=== PATIENT | female | born 1960 | race African-American/Black ===

== ENCOUNTER 2016-11-25 15:22 | Emergency (ER) | payer SELFPAY ==
[2016-11-25 15:45] LABS: #Basophils 0.1 thou/uL (0.0-0.2); #Eosinphils 0.2 thou/uL (0.0-0.7); #Lymphocytes 1.4 thou/uL (1.20-3.40); #Monocytes 0.4 thou/uL (0.11-0.59); #Neutrophils 3.7 thou/uL (1.40-6.50); %Basophils 1.6 % (0.0-1.0); %Eosinophils 3.1 % (0.0-10.0); %Monocytes 6.3 % (0.0-10.0); Hematocrit 47.4 % (36.0-47.0); Mean Platelet Volume 8.1 fL (7.4-10.4); Red Blood Cell (RBC) Count 4.99 mill/uL (4.20-5.40); White Blood Cell (WBC) Count 5.7 thou/uL (4.8-10.8)
[2016-11-25 15:54] LABS: Anion Gap 14 mmol/L (10-20); BUN (Urea Nitrogen) 10 mg/dL (9.8-20.1); Calc. Creatinine Clearance 0 mL/min (70-130); Carbon Dioxide 21 mmol/L (22-29); Chloride 109 mmol/L (98-107); Estimated GFR-MDRD 83
--- NOTE | 2016-11-25 16:28 | ERRECORD ---
[facility] EMERGENCY RECORD KNOWN ALLERGIES No Known Allergies (Unconfirmed) No Known Drug Allergies (Unconfirmed) CURRENT MEDICATIONS No recorded medications RADIOLOGYINTERPRETATION (15:57 MBRI) HEAD: Head CT negative, without contrast, no bleed, no mass, no acute changes. NECK: Cervical spine CT negative, no fracture, no subluxation. 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 MEDICATION ADMINISTRATION SUMMARY Drug Name: morphine injection, Dose Ordered: 8 mg, Route: IV Push, Status: Given, Time: 15:54 11/25/2016, Detailed record available in Medication Service section. DOCTOR NOTES TEXT: Pt evaluated at this time and appears stable. No findings on my exam or studies to suggest sig injury or issue requiring hospitalization or intervention/consultation. Plan of care discussed with pt and questions answered. Pt was informed of reasons for follow-up and strict reasons for return and they stated understanding. Pt is stable for d/c home at this time. (15:57 MBRI) Pt re-evaluated at this time and presents no concerning neck pain or tenderness. Pt is able to move neck in nml ROM without concerning findings of pain. Clincally pt is awake and alert and shows nml mentation without suspicion of altering condition or medications adversely effecting responses. No sig distracting injury is present and thus I have been able to clear the cspine clinically. Pt remains stable. (15:59 MBRI) PROBLEM LIST No recorded problems DIAGNOSIS (15:59 MBRI) FINAL: PRIMARY: neck strain, ADDITIONAL: back strain. PRESCRIPTION (15:58 MBRI) traMADol: TABLET : 50 mg : ORAL : Quantity: 1 Unit: tab(s) Route: ORAL Schedule: every 6 hours PRN Dispense: 20 May substitute. Refills: No Refills . NOTES: No refills. DISPOSITION PATIENT: Disposition Type: Discharge, Disposition: *Discharge &a-1R&a+25V*p+0X*b9626R*c202B*c15G*c2P*p-0X&a-25V&a+1R Name: Lianne Baez : 1960 F56 MedRec: [id number] AcctNum: [id number] Prepared: FriNov 25, 2016 16:22 by Interface Page 1 of 2 pMD [facility] EMERGENCY RECORD Home, Condition: Fair. (15:59 MBRI) Patient left the department. (16:19 KMOR) Maher: KMOR=JOSE ALEJANDRO Cohen, Marva MBRI=DO Rivera Matthew &a-1R&a+25V*p+0X*x3727N*c202B*c15G*c2P*p-0X&a-25V&a+1R Name: Lianne Baez : 1960 F56 MedRec: [id number] AcctNum: [id number] Prepared: FriNov 25, 2016 16:22 by Interface Page 2 of 2 pMD MTDD
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
== END 2016-11-25 16:19 | disposition home or self-care (01) ==
LOC: BURERS 15:22
DX: S16.1XXA Strain of muscle, fascia and tendon at neck level, initial encounter (principal); S39.012A Strain of muscle, fascia and tendon of lower back, initial encounter; E03.9 Hypothyroidism, unspecified; I10 Essential (primary) hypertension; V89.2XXA Person injured in unspecified motor-vehicle accident, traffic, initial encounter
CPT/HCPCS: 36415; 70450; 72125; 80048; 85025; 96374; G0390; J2270

== ENCOUNTER 2017-03-01 18:22 | Emergency (ER) | payer OTHER, SELFPAY ==
[2017-03-01] MEDS ORDERED: Clindamycin 150 MG CAP ONE (19:54)
== END 2017-03-01 19:57 | disposition home or self-care (01) ==
LOC: BURERS 18:22
DX: N61.1 Abscess of the breast and nipple (principal); I10 Essential (primary) hypertension; E03.9 Hypothyroidism, unspecified; F17.210 Nicotine dependence, cigarettes, uncomplicated; I25.10 Atherosclerotic heart disease of native coronary artery without angina pectoris; Z95.5 Presence of coronary angioplasty implant and graft
CPT/HCPCS: 87070; 87205; 99283

== ENCOUNTER 2017-12-24 10:58 | Emergency (ER) | payer SELFPAY | END 2017-12-24 11:35 | disposition home or self-care (01) | LOC: BURERS 10:58 | DX: I10 Essential (primary) hypertension (principal); E03.9 Hypothyroidism, unspecified; F17.210 Nicotine dependence, cigarettes, uncomplicated; Z85.3 Personal history of malignant neoplasm of breast | CPT/HCPCS: 99283 ==

== ENCOUNTER 2018-02-07 17:30 | Emergency (ER) | payer OTHER, SELFPAY | END 2018-02-07 17:58 | disposition home or self-care (01) | LOC: BURERS 17:30 | DX: B02.9 Zoster without complications (principal); I25.10 Atherosclerotic heart disease of native coronary artery without angina pectoris; E03.9 Hypothyroidism, unspecified; I10 Essential (primary) hypertension; F17.210 Nicotine dependence, cigarettes, uncomplicated; Z85.3 Personal history of malignant neoplasm of breast | CPT/HCPCS: 99282 ==

== ENCOUNTER 2019-04-15 17:01 | Emergency (ER) | payer OTHER, SELFPAY ==
[2019-04-15 17:47] LABS: ALT (SGPT) 10 U/L (8-55); AST (SGOT) 14 U/L (5-34); Albumin 4.2 g/dL (3.5-5.0); Alkaline Phosphatase 71 U/L (40-150); Anion Gap 13 mmol/L (10-20); BUN (Urea Nitrogen) 9 mg/dL (9.8-20.1); Bilirubin, Total 0.4 mg/dL (0.2-1.2); Calc. Creatinine Clearance 0 mL/min (70-130); Calcium 9.2 mg/dL (7.8-10.44); Carbon Dioxide 27 mmol/L (22-29); Chloride 103 mmol/L (98-107); Estimated GFR-MDRD 70; Globulin 3.6 g/dL (2.4-3.5); Glucose 99 mg/dL (70-105); Lipase 21 U/L (8-78); Potassium 3.8 mmol/L (3.5-5.1); Protein, Total 7.8 g/dL (6.0-8.3); Sodium 139 mmol/L (136-145)
[2019-04-15] MEDS ORDERED: Ketorolac Tromethamine 30 MG/ML VIAL ONE (17:47)
[2019-04-15 17:51] LABS: Hemoglobin 13.7 g/dL (12.0-16.0); Mean Corpuscular HGB CONC 30.9 g/dL (32.0-36.0); Mean Corpuscular Hemoglobin 28.5 pg (27.0-31.0); Mean Corpuscular Volume 92.3 fL (78.0-98.0); Mean Platelet Volume 8.2 fL (7.4-10.4); Platelet Count 234 thou/uL (130-400); RBC Distribution Width 12.8 % (11.5-14.5); Red Blood Cell (RBC) Count 4.82 mill/uL (4.20-5.40); White Blood Cell (WBC) Count 3.4 thou/uL (4.8-10.8)
[2019-04-15 18:05] LABS: Band 4 % (5-11); Eosinophils 8 % (0-10); Lymphocytes 33 % (21-51); MDiff Complete? YES; Monocytes 16 % (0-10); Neutrophil 35 % (42-75); Reactive Lymphocytes 2 % (0-10)
[2019-04-15 18:13] LABS: Thyroid Stimulating Hormone 6.1444 uIU/mL (0.35-4.94)
[2019-04-15 18:21] LABS: Clarity Clear (Clear)
[2019-04-15 18:22] LABS: Bilirubin Negative (Negative); Blood, Urine Trace (Negative); Glucose, Urine (Dipstick) Negative (Negative); Leukocyte Trace (Negative); Nitrite Negative (Negative); Protein, Urine (Dipstick) Trace mg/dL (Neg-Trace); pH, Urine 5.5 (5.0-9.0)
[2019-04-15 18:23] LABS: Bacteria/HPF Rare-Few HPF (None Seen); RBC/HPF 0-3 HPF (0-3); Squamous Epithelial 0-3 HPF (0-3); WBC/HPF 0-3 HPF (0-3)
--- NOTE | 2019-04-15 19:24 | RAD ---
PORTABLE CHEST 04/15/19 An AP portable film at 1737 is compared with a 11/24/18 study. The heart is normal in size for an AP film. There is no vascular congestion or edema. The lungs are c lear. IMPRESSION: No acute finding. POS: HOME
[2019-04-15 21:55] LABS: Free T4 (Free Thyroxine) 0.79 ng/dL (0.70-1.48)
== END 2019-04-15 18:49 | disposition home or self-care (01) ==
LOC: BURERS 17:01
DX: E03.9 Hypothyroidism, unspecified (principal); F17.210 Nicotine dependence, cigarettes, uncomplicated
CPT/HCPCS: 71045; 80053; 81003; 81015; 83690; 84439; 84443; 84484; 85025; 87804; 93005; 96361; 96374; J1885

== ENCOUNTER 2020-01-18 20:55 | Emergency (ER) | payer SELFPAY ==
--- NOTE | 2020-01-18 21:41 | RAD ---
Right great toe 3 views HISTORY: Injury to toe. COMPARISON: None. FINDINGS: There is a dislocation at the metatarsophalangeal joint of the great toe. The proximal phal anx is dorsally displaced. IMPRESSION: Dislocation at metatarsal phalangeal joint.
--- NOTE | 2020-01-18 21:43 | RAD ---
Left little finger 3 views HISTORY: Injury to little finger. COMPARISON: None. FINDINGS: There are arthritic changes. There is slight irregularity to the cortex on the volar side t he base of the middle phalanx. I do not see a definite fracture line. IMPRESSION: Probable old injury of the base of the middle phalanx of little finger. Clinical correlat ion is recommended.
[2020-01-18] MEDS ORDERED: Lidocaine 2% PF 5 ML VIAL ONE (22:10)
--- NOTE | 2020-01-18 22:42 | RAD ---
Right great toe 3 views HISTORY: Postreduction COMPARISON: Film done earlier today. FINDINGS: The dislocation at the metatarsal phalangeal joint has been reduced. IMPRESSION: Reduction of dislocation.
[2020-01-18] MEDS ORDERED: Lisinopril 5 MG TAB PO SCH (22:45)
[2020-01-18] MEDS ORDERED: Metoprolol Tartrate 25 MG TAB PO SCH (22:45)
== END 2020-01-18 22:55 | disposition home or self-care (01) ==
LOC: BURERS 20:55
DX: S62.627A Displaced fracture of middle phalanx of left little finger, initial encounter for closed fracture (principal); S93.121A Dislocation of metatarsophalangeal joint of right great toe, initial encounter; E78.5 Hyperlipidemia, unspecified; I10 Essential (primary) hypertension; I25.10 Atherosclerotic heart disease of native coronary artery without angina pectoris; E03.9 Hypothyroidism, unspecified; F17.220 Nicotine dependence, chewing tobacco, uncomplicated; Z79.82 Long term (current) use of aspirin; Z79.899 Other long term (current) drug therapy; V43.52XA Car driver injured in collision with other type car in traffic accident, initial encounter
CPT/HCPCS: 28630; J2001

== ENCOUNTER 2021-01-26 14:57 | Emergency (ER) | payer MEDICAID, SELFPAY ==
[2021-01-26 15:46] LABS: #Basophils 0.1 thou/uL (0.0-0.2); #Eosinphils 0.1 thou/uL (0.0-0.7); #Lymphocytes 1.3 thou/uL (1.20-3.40); #Monocytes 0.4 thou/uL (0.11-0.59); #Neutrophils 7.5 thou/uL (1.40-6.50); %Basophils 0.7 % (0.0-1.0); %Eosinophils 1.1 % (0.0-10.0); %Lymphocytes 13.9 % (21.0-51.0); %Monocytes 4.2 % (0.0-10.0); %Neutrophils 80.1 % (42.0-75.0); Hemoglobin 11.4 g/dL (12.0-16.0); Mean Corpuscular HGB CONC 32.3 g/dL (32.0-36.0); Mean Corpuscular Hemoglobin 29.4 pg (27.0-31.0); Mean Corpuscular Volume 91.1 fL (78.0-98.0); Mean Platelet Volume 8.4 fL (7.4-10.4); Platelet Count 275 thou/uL (130-400); RBC Distribution Width 13.4 % (11.5-14.5); Red Blood Cell (RBC) Count 3.88 mill/uL (4.20-5.40); White Blood Cell (WBC) Count 9.3 thou/uL (4.8-10.8)
[2021-01-26 15:51] LABS: INR-International Normal Ratio 1.1; Prothrombin Time 14.7 sec (12.0-14.7)
[2021-01-26] MEDS ORDERED: Famotidine In NaCl 20 mg/50 ml Premix Bag ONE (15:59)
[2021-01-26 16:00] LABS: ALT (SGPT) 12 U/L (8-55); AST (SGOT) 14 U/L (5-34); Albumin 3.8 g/dL (3.5-5.0); Alkaline Phosphatase 70 U/L (40-110); Anion Gap 13 mmol/L (10-20); BUN (Urea Nitrogen) 12 mg/dL (9.8-20.1); Bilirubin, Total 0.3 mg/dL (0.2-1.2); Calc. Creatinine Clearance 0 mL/min (70-130); Calcium 8.7 mg/dL (7.8-10.44); Carbon Dioxide 25 mmol/L (22-29); Chloride 108 mmol/L (98-107); Globulin 3.4 g/dL (2.4-3.5); Glucose 118 mg/dL (70-105); Potassium 3.9 mmol/L (3.5-5.1); Protein, Total 7.2 g/dL (6.0-8.3); Sodium 142 mmol/L (136-145)
[2021-01-26 16:10] LABS: PTT 22.4 sec (22.9-36.1)
[2021-01-26] MEDS ORDERED: Iopamidol 300 61% 100 ML VIAL FS ONE (16:18)
[2021-01-26] MEDS ORDERED: Pantoprazole 40 MG VIAL ONE (16:33)
== END 2021-01-26 17:37 | disposition short-term general hospital (02) ==
LOC: BURERS 14:57
DX: K92.2 Gastrointestinal hemorrhage, unspecified (principal); E78.5 Hyperlipidemia, unspecified; I10 Essential (primary) hypertension; I25.10 Atherosclerotic heart disease of native coronary artery without angina pectoris; E03.9 Hypothyroidism, unspecified; F17.210 Nicotine dependence, cigarettes, uncomplicated; Z79.899 Other long term (current) drug therapy
CPT/HCPCS: 74177; 80053; 82274; 85025; 85610; 85730; 94760; 96365; 96375; C9113; Q9967

== ENCOUNTER 2021-03-16 18:57 | Emergency (ER) | payer MEDICAID ==
[~2021-03-16 18:57] MED LIST: Iopamidol 370 76% 100 ML VIAL ONE; Iopamidol 370 76% 50 ML VIAL FS ONE
[2021-03-16] MEDS ORDERED: Morphine 4 MG/ML VIAL ONE ×2 (19:37→23:37)
[2021-03-16] MEDS ORDERED: Ondansetron PF 4 MG/2 ML Vial ONE (19:38)
[2021-03-16 19:49] LABS: Bilirubin Moderate (Negative); Blood, Urine Negative (Negative); Clarity Cloudy (Clear); Glucose, Urine (Dipstick) Negative (Negative); Ketone, Urine Trace mg/dL (Negative); Leukocyte Negative (Negative); Nitrite Negative (Negative); Protein, Urine (Dipstick) 30 mg/dL (Neg-Trace); Specific Gravity, Urine 1.036 (1.002-1.036)
[2021-03-16 19:51] LABS: Bacteria/HPF 2+ HPF (None Seen); Mucous/LPF 4+ LPF (<2+); RBC/HPF 0-3 HPF (0-3)
[2021-03-16 19:58] LABS: #Basophils 0.1 thou/uL (0.0-0.2); #Eosinphils 0.2 thou/uL (0.0-0.7); #Lymphocytes 1.7 thou/uL (1.20-3.40); #Monocytes 0.3 thou/uL (0.11-0.59); #Neutrophils 2.2 thou/uL (1.40-6.50); %Basophils 1.3 % (0.0-1.0); %Eosinophils 4.8 % (0.0-10.0); %Monocytes 6.7 % (0.0-10.0); %Neutrophils 49.1 % (42.0-75.0); ALT (SGPT) 10 U/L (8-55); AST (SGOT) 19 U/L (5-34); Albumin 3.8 g/dL (3.5-5.0); Alkaline Phosphatase 63 U/L (40-110); Anion Gap 13 mmol/L (10-20); BUN (Urea Nitrogen) 10 mg/dL (9.8-20.1); Bilirubin, Total Less than 0.2 mg/dL (0.2-1.2); Calc. Creatinine Clearance 0 mL/min (70-130); Calcium 9.4 mg/dL (7.8-10.44); Carbon Dioxide 25 mmol/L (22-29); Chloride 108 mmol/L (98-107); Globulin 3.8 g/dL (2.4-3.5); Glucose 105 mg/dL (70-105); Hemoglobin 9.7 g/dL (12.0-16.0); Lipase 33 U/L (8-78); Mean Corpuscular HGB CONC 31.6 g/dL (32.0-36.0); Mean Corpuscular Volume 82.3 fL (78.0-98.0); Mean Platelet Volume 7.6 fL (7.4-10.4); Platelet Count 315 thou/uL (130-400); Potassium 4.1 mmol/L (3.5-5.1); Protein, Total 7.6 g/dL (6.0-8.3); Red Blood Cell (RBC) Count 3.73 mill/uL (4.20-5.40); Sodium 142 mmol/L (136-145); White Blood Cell (WBC) Count 4.4 thou/uL (4.8-10.8)
[2021-03-16] MEDS ORDERED: Hydrochlorothiazide 25 MG TAB ONE (21:10)
== END 2021-03-17 00:10 | disposition home or self-care (01) ==
LOC: BURERS 18:57
DX: R10.84 Generalized abdominal pain (principal); I10 Essential (primary) hypertension; C77.2 Secondary and unspecified malignant neoplasm of intra-abdominal lymph nodes; R11.10 Vomiting, unspecified; E78.5 Hyperlipidemia, unspecified; I25.10 Atherosclerotic heart disease of native coronary artery without angina pectoris; I25.2 Old myocardial infarction; E03.9 Hypothyroidism, unspecified; F17.210 Nicotine dependence, cigarettes, uncomplicated; Z85.038 Personal history of other malignant neoplasm of large intestine; Z85.3 Personal history of malignant neoplasm of breast; Z79.899 Other long term (current) drug therapy
CPT/HCPCS: 74177; 80053; 81003; 81015; 83605; 83690; 85025; 96374; 96375; 96376; J2270; J2405; Q9967

== ENCOUNTER 2021-04-15 21:18 | Emergency (ER) | payer MEDICAID, OTHER ==
[2021-04-15] MEDS ORDERED: Ondansetron PF 4 MG/2 ML Vial ONE (21:48)
[2021-04-15 22:01] LABS: ALT (SGPT) 13 U/L (8-55); AST (SGOT) 19 U/L (5-34); Albumin 4.1 g/dL (3.5-5.0); Alkaline Phosphatase 107 U/L (40-110); Anion Gap 20 mmol/L (10-20); BUN (Urea Nitrogen) 12 mg/dL (9.8-20.1); Bilirubin, Total 0.6 mg/dL (0.2-1.2); CK (CPK) 46 U/L (29-168); Calc. Creatinine Clearance 0 mL/min (70-130); Calcium 9.5 mg/dL (7.8-10.44); Carbon Dioxide 22 mmol/L (22-29); Chloride 104 mmol/L (98-107); Globulin 3.8 g/dL (2.4-3.5); Glucose 121 mg/dL (70-105); Lipase 12 U/L (8-78); Potassium 3.6 mmol/L (3.5-5.1); Protein, Total 7.9 g/dL (6.0-8.3); Sodium 142 mmol/L (136-145)
[2021-04-15 22:27] LABS: Hemoglobin 13.7 g/dL (12.0-16.0); Mean Corpuscular HGB CONC 31.3 g/dL (32.0-36.0); Mean Corpuscular Hemoglobin 26.9 pg (27.0-31.0); Mean Corpuscular Volume 85.8 fL (78.0-98.0); Mean Platelet Volume 7.9 fL (7.4-10.4); Platelet Count 219 thou/uL (130-400)
[2021-04-15 22:50] LABS: Band 59 % (5-11); Lymphocytes 3 % (21-51); MDiff Complete? YES; Monocytes 4 % (0-10); Neutrophil 34 % (42-75); Platelet Morphology Comment Appears Adequate; Poikilocytosis SLIGHT = 6-15 cells (100X) (0-5/hpf)
[2021-04-15 22:52] LABS: White Blood Cell (WBC) Count 79.5 thou/uL (4.8-10.8)
[2021-04-15] MEDS ORDERED: Morphine 4 MG/ML VIAL ONE (23:06)
[2021-04-15] MEDS ORDERED: Metoprolol Tartrate 5 MG/5 ML VIAL ONE (23:06)
== END 2021-04-15 23:15 | disposition short-term general hospital (02) ==
LOC: BURERS 21:18
DX: I10 Essential (primary) hypertension (principal); D72.829 Elevated white blood cell count, unspecified; R10.84 Generalized abdominal pain; R11.2 Nausea with vomiting, unspecified; R07.89 Other chest pain; E78.5 Hyperlipidemia, unspecified; E03.9 Hypothyroidism, unspecified; F17.210 Nicotine dependence, cigarettes, uncomplicated; Z79.899 Other long term (current) drug therapy
CPT/HCPCS: 71045; 80053; 82550; 83690; 84484; 85025; 93005; 96374; 96375; J2270; J2405

== ENCOUNTER 2022-10-11 00:39 | Emergency (ER) | payer OTHER ==
[2022-10-11 02:50] LABS: #Basophils 0.2 thou/uL (0.0-0.2); #Eosinphils 1.6 thou/uL (0.0-0.7); #Lymphocytes 2.6 thou/uL (1.20-3.40); #Monocytes 0.3 thou/uL (0.11-0.59); %Basophils 1.9 % (0.0-1.0); %Eosinophils 16.2 % (0.0-10.0); %Lymphocytes 26.9 % (21.0-51.0); %Monocytes 3.4 % (0.0-10.0); %Neutrophils 51.6 % (42.0-75.0); Hemoglobin 11.9 g/dL (12.0-16.0); Mean Corpuscular HGB CONC 32.9 g/dL (32.0-36.0); Mean Corpuscular Hemoglobin 30.9 pg (27.0-31.0); Mean Platelet Volume 7.3 fL (7.4-10.4); Platelet Count 418 10x3/uL (130-400); RBC Distribution Width 15.3 % (11.5-14.5); Red Blood Cell (RBC) Count 3.84 mill/uL (4.20-5.40); White Blood Cell (WBC) Count 9.6 10x3/uL (4.8-10.8)
[2022-10-11] MEDS ORDERED: Morphine 4 MG/ML VIAL ONE ×2 (02:50→02:53)
[2022-10-11] MEDS ORDERED: Morphine 2 MG/ML VIAL ONE ×2 (02:52)
[2022-10-11 03:07] LABS: Anion Gap 15 mmol/L (10-20); BUN (Urea Nitrogen) 12 mg/dL (9.8-20.1); Bilirubin, Total 0.5 mg/dL (0.2-1.2); Calc. Creatinine Clearance 0 mL/min (70-130); Calcium 9.5 mg/dL (7.8-10.44); Carbon Dioxide 26 mmol/L (22-29); Chloride 104 mmol/L (98-107); Estimated GFR 55; Globulin 4.4 g/dL (2.4-3.5); Glucose 113 mg/dL (70-105); Potassium 3.7 mmol/L (3.5-5.1); Protein, Total 8.4 g/dL (6.0-8.3); Sodium 141 mmol/L (136-145)
[2022-10-11 03:08] LABS: ALT (SGPT) 18 U/L (8-55); AST (SGOT) 25 U/L (5-34); Alkaline Phosphatase 135 U/L (40-110); Lipase 36 U/L (8-78)
[2022-10-11 05:10] LABS: SARS-CoV-2 NAA Rapid Test Not Detected (NotDetected)
[2022-10-11 05:35] LABS: Bilirubin Negative (Negative); Blood, Urine Trace (Negative); Clarity Clear (Clear); Glucose, Urine (Dipstick) Negative (Negative); Ketone, Urine Negative (Negative); Leukocyte Small (Negative); Nitrite Negative (Negative); Protein, Urine (Dipstick) Negative (Neg-Trace); RBC/HPF 0-3 HPF (0-3); Specific Gravity, Urine 1.015 (1.005-1.030); Squamous Epithelial None Seen HPF (0-3); Urobilinogen 0.2 mg/dL (Less than 2); WBC/HPF None Seen HPF (0-3)
[2022-10-11 05:36] LABS: Bacteria/HPF Rare-Few HPF (None Seen); Mucous/LPF None Seen LPF (<2+)
[2022-10-11] MEDS ORDERED: HYDROcodone/Acetaminophen 5/325 mg Tablet ONE (09:50)
[2022-10-11] MEDS ORDERED: Iopamidol 370 76% 100 ML VIAL ONE (15:12)
== END 2022-10-11 07:44 | disposition home or self-care (01) ==
LOC: BURERS 00:39
DX: R10.9 Unspecified abdominal pain (principal); R51.9 Headache, unspecified; E78.5 Hyperlipidemia, unspecified; E03.9 Hypothyroidism, unspecified; I10 Essential (primary) hypertension; F17.210 Nicotine dependence, cigarettes, uncomplicated; Z20.822 Contact with and (suspected) exposure to COVID-19; Z85.038 Personal history of other malignant neoplasm of large intestine
CPT/HCPCS: 74177; 80053; 81003; 81015; 83605; 83690; 85025; 96374; J2270; Q9967

== ENCOUNTER 2023-03-07 00:09 | Emergency (ER) | payer OTHER ==
[2023-03-07] MEDS ORDERED: Famotidine/PF 20 mg/2ml Vial ONE (00:59)
[2023-03-07] MEDS ORDERED: Lidocaine Viscous Sol 2% 15 ml UD Cup ONE (00:59)
[2023-03-07] MEDS ORDERED: Mag-Al Plus 1200 MG/1200 MG/120 MG/30 ML UDCUP ONE (00:59)
[2023-03-07 01:43] LABS: Hemoglobin 11.6 g/dL (12.0-16.0); Mean Corpuscular HGB CONC 31.1 g/dL (32.0-36.0); Mean Corpuscular Hemoglobin 27.9 pg (27.0-31.0); Mean Platelet Volume 8.1 fL (7.4-10.4); Platelet Count 255 10x3/uL (130-400); RBC Distribution Width 13.6 % (11.5-14.5); Red Blood Cell (RBC) Count 4.14 mill/uL (4.20-5.40); Reflex for Review?? NO
[2023-03-07 01:47] LABS: ALT (SGPT) 9 U/L (8-55); AST (SGOT) 11 U/L (5-34); Albumin 3.3 g/dL (3.5-5.0); Alkaline Phosphatase 109 U/L (40-110); Anion Gap 20 mmol/L (10-20); BUN (Urea Nitrogen) 6 mg/dL (9.8-20.1); Bilirubin, Total 0.6 mg/dL (0.2-1.2); Calc. Creatinine Clearance 0 mL/min (70-130); Calcium 8.4 mg/dL (7.8-10.44); Carbon Dioxide 31 mmol/L (22-29); Chloride 96 mmol/L (98-107); Estimated GFR 73; Globulin 3.6 g/dL (2.4-3.5); Glucose 105 mg/dL (70-105); Potassium 3.1 mmol/L (3.5-5.1); Protein, Total 6.9 g/dL (6.0-8.3); Sodium 144 mmol/L (136-145)
[2023-03-07 01:50] LABS: Lipase Less than 4 U/L (8-78)
[2023-03-07] MEDS ORDERED: Potassium Chloride 20 MEQ TAB ONE (01:53)
[2023-03-07 05:22] LABS: White Blood Cell (WBC) Count 1.5 10x3/uL (4.8-10.8)
[2023-03-07 05:24] LABS: Giant Platelets SLIGHT; Lymphocytes 90 % (21-51); Monocytes 3 % (0-10)
== END 2023-03-07 02:13 | disposition home or self-care (01) ==
LOC: BURERS 00:09
DX: K21.9 Gastro-esophageal reflux disease without esophagitis (principal); E87.6 Hypokalemia; D64.9 Anemia, unspecified; E87.8 Other disorders of electrolyte and fluid balance, not elsewhere classified; E87.3 Alkalosis; I10 Essential (primary) hypertension; Z79.899 Other long term (current) drug therapy; Z79.82 Long term (current) use of aspirin; F17.210 Nicotine dependence, cigarettes, uncomplicated
CPT/HCPCS: 71045; 80053; 83690; 84484; 85025; 93005; 96374; S0028

== ENCOUNTER 2023-06-11 03:41 | Emergency (ER) | payer OTHER ==
[2023-06-11] MEDS ORDERED: Ondansetron PF 4 MG/2 ML Vial ONE (04:20)
[2023-06-11] MEDS ORDERED: Famotidine/PF 20 mg/2ml Vial ONE (04:20)
[2023-06-11] MEDS ORDERED: Mag-Al Plus 1200 MG/1200 MG/120 MG/30 ML UDCUP ONE (04:21)
[2023-06-11] MEDS ORDERED: Cyclobenzaprine 10 MG TAB ONE (04:21)
[2023-06-11] MEDS ORDERED: Lidocaine Viscous Sol 2% 15 ml UD Cup ONE (04:21)
[2023-06-11 04:24] LABS: #Basophils 0.1 thou/uL (0.0-0.2); #Eosinphils 0.1 thou/uL (0.0-0.7); #Lymphocytes 3.5 thou/uL (1.20-3.40); #Monocytes 0.8 thou/uL (0.11-0.59); #Neutrophils 8.1 thou/uL (1.40-6.50); %Basophils 0.6 % (0.0-1.0); %Eosinophils 0.7 % (0.0-10.0); %Lymphocytes 27.5 % (21.0-51.0); %Monocytes 6.6 % (0.0-10.0); %Neutrophils 64.6 % (42.0-75.0); Mean Corpuscular HGB CONC 33.3 g/dL (32.0-36.0); Mean Corpuscular Hemoglobin 29.2 pg (27.0-31.0); Mean Corpuscular Volume 87.8 fl (78.0-98.0); Platelet Count 350 10x3/uL (130-400); Red Blood Cell (RBC) Count 4.78 mill/uL (4.20-5.40); White Blood Cell (WBC) Count 12.6 10x3/uL (4.8-10.8)
[2023-06-11 04:45] LABS: ALT (SGPT) 17 U/L (8-55); AST (SGOT) 17 U/L (5-34); Albumin 3.8 g/dL (3.4-4.8); Alkaline Phosphatase 138 U/L (40-110); Anion Gap 17 mmol/L (10-20); BUN (Urea Nitrogen) 8 mg/dL (9.8-20.1); Bilirubin, Total 0.3 mg/dL (0.2-1.2); Calc. Creatinine Clearance 0 mL/min (70-130); Calcium 9.3 mg/dL (7.8-10.44); Carbon Dioxide 25 mmol/L (23-31); Chloride 103 mmol/L (98-107); Estimated GFR 71; Glucose 94 mg/dL (80-115); Lipase 9 U/L (8-78); Protein, Total 6.8 g/dL (5.8-8.1); Sodium 142 mmol/L (136-145)
[2023-06-11 04:46] LABS: Potassium 2.6 mmol/L (3.5-5.1)
[2023-06-11] MEDS ORDERED: Potassium Chloride 20 MEQ TAB ONE (05:03)
[2023-06-11] MEDS ORDERED: hydrALAZINE 20 MG/ML VIAL ONE (05:14)
[2023-06-11] MEDS ORDERED: Potassium Chloride 20 MEQ/100 ML PREMIX BAG ONE (05:24)
[2023-06-11] MEDS ORDERED: Potassium Bicarbonate/Cit Ac 20 MEQ TAB PO SCH (05:30)
[2023-06-11] MEDS ORDERED: Sucralfate 1 GM TAB ONE (05:32)
== END 2023-06-11 09:17 | disposition home or self-care (01) ==
LOC: BURERS 03:41
DX: K21.00 Gastro-esophageal reflux disease with esophagitis, without bleeding (principal); I10 Essential (primary) hypertension; E87.6 Hypokalemia; F17.210 Nicotine dependence, cigarettes, uncomplicated; Z85.038 Personal history of other malignant neoplasm of large intestine; Z85.3 Personal history of malignant neoplasm of breast; Z79.899 Other long term (current) drug therapy
CPT/HCPCS: 71045; 80053; 83690; 83880; 84484; 85025; 93005; 94760; 96361; 96374; 96375; J0360; J2405; J3480; S0028

== ENCOUNTER 2024-06-08 00:04 | Emergency (ER) | payer OTHER ==
[2024-06-08] MEDS ORDERED: Ketorolac Tromethamine 30 MG (1 mL) VIAL ONE (00:28)
[2024-06-08 00:56] LABS: #Basophils 0.1 thou/uL (0.0-0.2); #Eosinphils 0.2 thou/uL (0.0-0.7); #Lymphocytes 3.2 thou/uL (1.20-3.40); #Monocytes 1.3 thou/uL (0.11-0.59); #Neutrophils 13.2 thou/uL (1.40-6.50); %Basophils 0.7 % (0.0-1.0); %Neutrophils 73.2 % (42.0-75.0); Hematocrit 39.8 % (36.0-47.0); Mean Corpuscular HGB CONC 32.7 g/dL (32.0-36.0); Mean Corpuscular Hemoglobin 30.9 pg (27.0-31.0); Mean Corpuscular Volume 94.4 fl (78.0-98.0); Mean Platelet Volume 6.2 fL (7.4-10.4); Platelet Count 169 10x3/uL (130-400); RBC Distribution Width 14.2 % (11.5-14.5); Red Blood Cell (RBC) Count 4.22 mill/uL (4.20-5.40)
[2024-06-08 01:17] LABS: ALT (SGPT) 30 U/L (8-55); AST (SGOT) 26 U/L (5-34); Albumin 3.7 g/dL (3.4-4.8); Alkaline Phosphatase 130 U/L (40-110); Anion Gap 17 mmol/L (10-20); BUN (Urea Nitrogen) 8 mg/dL (9.8-20.1); Bilirubin, Total 0.3 mg/dL (0.2-1.2); Calc. Creatinine Clearance 0 mL/min (70-130); Calcium 9.5 mg/dL (7.8-10.44); Carbon Dioxide 24 mmol/L (23-31); Chloride 105 mmol/L (98-107); Estimated GFR 61; Globulin 3.3 g/dL (2.4-3.5); Glucose 115 mg/dL (80-115); Potassium 3.7 mmol/L (3.5-5.1); Sodium 142 mmol/L (136-145)
== END 2024-06-08 01:29 | disposition home or self-care (01) ==
LOC: BURERS 00:04
DX: S39.012A Strain of muscle, fascia and tendon of lower back, initial encounter (principal); R07.89 Other chest pain; I10 Essential (primary) hypertension; I25.2 Old myocardial infarction; F17.210 Nicotine dependence, cigarettes, uncomplicated; X58.XXXA Exposure to other specified factors, initial encounter; Z79.899 Other long term (current) drug therapy
CPT/HCPCS: 80053; 84484; 85025; 93005; 96374; J1885

== ENCOUNTER 2025-03-18 16:25 | Emergency (ER) | payer MEDICAID, OTHER ==
[~2025-03-18 16:25] MED LIST changes: +HYDROcodone/Acetaminophen 5/325 mg Tablet ONE; -Iopamidol 370 76% 100 ML VIAL ONE; -Iopamidol 370 76% 50 ML VIAL FS ONE
== END 2025-03-18 19:20 | disposition home or self-care (01) ==
LOC: BURERS 16:25
DX: S92.902A Unspecified fracture of left foot, initial encounter for closed fracture (principal); X58.XXXA Exposure to other specified factors, initial encounter
CPT/HCPCS: 99283

== ENCOUNTER 2025-09-03 14:11 | Emergency (ER) | payer MEDICAID ==
[2025-09-03] MEDS ORDERED: HYDROcodone/Acetaminophen 5/325 mg Tablet ONE (14:39)
[2025-09-03] MEDS ORDERED: Nitroglycerin 2% Ointment 1 INCH/1 GM Packet ONE (14:39)
[2025-09-03] MEDS ORDERED: hydrALAZINE 20 MG/ML VIAL ONE (15:21)
== END 2025-09-03 15:51 | disposition home or self-care (01) ==
LOC: BURERS 14:11
DX: R10.9 Unspecified abdominal pain (principal); I10 Essential (primary) hypertension; C18.9 Malignant neoplasm of colon, unspecified; C78.7 Secondary malignant neoplasm of liver and intrahepatic bile duct; C25.9 Malignant neoplasm of pancreas, unspecified; F17.210 Nicotine dependence, cigarettes, uncomplicated; F17.290 Nicotine dependence, other tobacco product, uncomplicated
CPT/HCPCS: 96372; 99283; J0360

== ENCOUNTER 2025-09-14 00:57 | Emergency (ER) | payer MEDICAID ==
[2025-09-14] MEDS ORDERED: hydrALAZINE 20 MG/ML VIAL ONE (01:51)
[2025-09-14] MEDS ORDERED: Ondansetron PF 4 MG/2 ML Vial ONE (01:52)
[2025-09-14 02:31] LABS: Anion Gap 16 mmol/L (10-20); BUN (Urea Nitrogen) 8 mg/dL (9.8-20.1); Calc. Creatinine Clearance 0 mL/min (70-130); Calcium 8.8 mg/dL (7.8-10.44); Carbon Dioxide 25 mmol/L (23-31); Chloride 105 mmol/L (98-107); Glucose 89 mg/dL (80-115); Potassium 3.1 mmol/L (3.5-5.1); Sodium 143 mmol/L (136-145)
[2025-09-14 02:33] LABS: #Basophils 0.1 thou/uL (0.0-0.2); #Eosinophils 0.3 thou/uL (0.0-0.7); #Lymphocytes 1.4 thou/uL (1.20-3.40); #Monocytes 0.2 thou/uL (0.11-0.59); #Neutrophils 1.4 thou/uL (1.40-6.50); %Basophils 2.7 % (0.0-1.0); %Eosinophils 10.2 % (0.0-10.0); %Lymphocytes 40.4 % (21.0-51.0); %Monocytes 4.8 % (0.0-10.0); %Neutrophils 41.9 % (42.0-75.0); Hematocrit 31.5 % (36.0-47.0); Hemoglobin 11.2 g/dL (12.0-16.0); Mean Corpuscular Hemoglobin 28.2 pg (27.0-31.0); Mean Corpuscular Volume 79.2 fl (78.0-98.0); Platelet Count 313 10x3/uL (130-400); Red Blood Cell (RBC) Count 3.98 mill/uL (4.20-5.40); White Blood Cell (WBC) Count 3.4 10x3/uL (4.8-10.8)
== END 2025-09-14 03:07 | disposition home or self-care (01) ==
LOC: BURERS 00:57
DX: R10.9 Unspecified abdominal pain (principal); I10 Essential (primary) hypertension; F17.210 Nicotine dependence, cigarettes, uncomplicated; F17.290 Nicotine dependence, other tobacco product, uncomplicated; Z79.899 Other long term (current) drug therapy
CPT/HCPCS: 80048; 85025; 96374; 96375; J0360; J2270; J2405

== ENCOUNTER 2025-10-19 20:27 | Emergency (ER) | payer MEDICAID ==
[2025-10-19] MEDS ORDERED: hydrALAZINE 20 MG/ML VIAL ONE (21:00)
[2025-10-19] MEDS ORDERED: Ondansetron PF 4 MG/2 ML Vial ONE (21:01)
[2025-10-19 21:21] LABS: ALT (SGPT) Less than 7 U/L (Less than 34); AST (SGOT) 26 U/L (11-34); Albumin 3.2 g/dL (3.1-4.5); Alkaline Phosphatase 138 U/L (40-110); Anion Gap 20 mmol/L (10-20); BUN (Urea Nitrogen) 12 mg/dL (9.8-20.1); Bilirubin, Total 0.6 mg/dL (0.3-1.2); Calc. Creatinine Clearance 0 mL/min (70-130); Calcium 9.6 mg/dL (7.8-10.44); Carbon Dioxide 24 mmol/L (23-31); Chloride 102 mmol/L (98-107); Globulin 4.6 g/dL (2.4-3.5); Glucose 82 mg/dL (80-115); Magnesium 2.0 mg/dL (1.6-2.6); Potassium 3.9 mmol/L (3.5-5.1); Sodium 142 mmol/L (136-145)
[2025-10-19 21:23] LABS: Hematocrit 40.4 % (36.0-47.0); Hemoglobin 12.3 g/dL (12.0-16.0); MDiff Complete? YES; Mean Corpuscular Hemoglobin 29.3 pg (27.0-31.0); Mean Corpuscular Volume 95.9 fl (78.0-98.0); Platelet Adequacy Comment Appears Adequate; Platelet Count 641 10x3/uL (130-400); Red Blood Cell (RBC) Count 4.21 mill/uL (4.20-5.40); White Blood Cell (WBC) Count 11.1 10x3/uL (4.8-10.8)
[2025-10-19] MEDS ORDERED: HYDROcodone/Acetaminophen 10/325 mg Tablet ONE (21:27)
== END 2025-10-19 21:51 | disposition home or self-care (01) ==
LOC: BURERS 20:27
DX: G89.29 Other chronic pain (principal); M54.9 Dorsalgia, unspecified; I10 Essential (primary) hypertension; F17.210 Nicotine dependence, cigarettes, uncomplicated; F17.290 Nicotine dependence, other tobacco product, uncomplicated; Z79.899 Other long term (current) drug therapy; Z79.82 Long term (current) use of aspirin
CPT/HCPCS: 80053; 83735; 85025; 96374; 96375; J0360; J2270; J2405

== ENCOUNTER 2025-10-24 09:40 | Emergency (ER) | payer MEDICAID ==
[2025-10-24] MEDS ORDERED: hydrALAZINE 20 MG/ML VIAL ONE (10:01)
[2025-10-24 10:05] LABS: Hematocrit 38.0 % (36.0-47.0); Hemoglobin 11.6 g/dL (12.0-16.0); Mean Corpuscular Hemoglobin 30.1 pg (27.0-31.0); Mean Corpuscular Volume 98.5 fl (78.0-98.0); Platelet Count 604 10x3/uL (130-400); Red Blood Cell (RBC) Count 3.86 mill/uL (4.20-5.40); White Blood Cell (WBC) Count 9.5 10x3/uL (4.8-10.8)
[2025-10-24 10:18] LABS: ALT (SGPT) Less than 7 U/L (Less than 34); AST (SGOT) 26 U/L (11-34); Albumin 2.9 g/dL (3.1-4.5); Alkaline Phosphatase 138 U/L (40-110); Anion Gap 17 mmol/L (10-20); BUN (Urea Nitrogen) 9 mg/dL (9.8-20.1); Bilirubin, Total 0.4 mg/dL (0.3-1.2); Calc. Creatinine Clearance 0 mL/min (70-130); Calcium 9.1 mg/dL (7.8-10.44); Carbon Dioxide 22 mmol/L (23-31); Chloride 104 mmol/L (98-107); Globulin 4.5 g/dL (2.4-3.5); Glucose 105 mg/dL (80-115); Magnesium 1.8 mg/dL (1.6-2.6); Potassium 3.3 mmol/L (3.5-5.1); Sodium 140 mmol/L (136-145); Troponin I 0.024 ng/mL (< 0.028)
[2025-10-24 10:34] LABS: Anisocytosis SLIGHT = 6-15 cells (100X) (0-5/hpf); Burr Cells SLIGHT = 2-5 cells (100X) (0-1/hpf); Lipase 4 U/L (8-78); MDiff Complete? YES; Platelet Adequacy Comment Appears Increased; Schistocytes SLIGHT = 2-5 cells (100X) (0-1/hpf)
[2025-10-24] MEDS ORDERED: HYDROcodone/Acetaminophen 10/325 mg Tablet ONE (11:07)
== END 2025-10-24 11:15 | disposition home or self-care (01) ==
LOC: BURERS 09:40
DX: M54.9 Dorsalgia, unspecified (principal); G89.29 Other chronic pain; I10 Essential (primary) hypertension; E03.9 Hypothyroidism, unspecified; F17.210 Nicotine dependence, cigarettes, uncomplicated; F17.290 Nicotine dependence, other tobacco product, uncomplicated; Z79.899 Other long term (current) drug therapy; Z79.82 Long term (current) use of aspirin
CPT/HCPCS: 71045; 80053; 83690; 83735; 84484; 85025; 93005; 96374; 96375; J0360; J2270